=== PATIENT | male | born 1985 ===

== ENCOUNTER 2023-07-02 05:03 | Day surgery (SDC) | payer OTHER ==
[~2023-07-02 05:03] MED LIST: HUMIRA(CF)40 MG/0.4 SQ
[2023-07-02] MEDS ORDERED: METRONIDAZOLE/SODIUM CHLORIDE 500 MG/100 ML PIGGYBACK IV ONE ×2 (07:17→08:30)
[2023-07-02] MEDS ORDERED: CEFTRIAXONE SODIUM 2,000 MG VIAL ONE (07:17)
[2023-07-02] MEDS ORDERED: LIDOCAINE HCL 1%/Epi 20ML VIAL IJ ONE ×2 (07:34→08:30)
[2023-07-02] MEDS ORDERED: POVIDONE-IODINE 118 ML BOTT TOP ONE ×2 (07:34→08:30)
[2023-07-02] MEDS ORDERED: HEMOSTATIC MATRIX 1 KIT KIT TOP ONE ×2 (07:34→08:30)
[2023-07-02] MEDS ORDERED: DIBUCAINE 15 GM OINT..GM. TUBE ONE (07:34)
[2023-07-02] MEDS ORDERED: BUPIVACAINE HCL/PF 0.5% 30ML ML ONE (07:34)
[2023-07-02] MEDS ORDERED: HYDROCORTISONE SODIUM SUCC/PF 100 MG VIAL ONE (07:35)
[2023-07-02] MEDS ORDERED: CEFTRIAXONE SODIUM 2,000 MG VIAL IV ONE (08:30)
[2023-07-02] MEDS ORDERED: HYDROCORTISONE SODIUM SUCC/PF 100 MG VIAL IV ONE (08:30)
[2023-07-02] MEDS ORDERED: BUPIVACAINE HCL 30 ML VIAL IJ ONE (08:30)
[2023-07-02] MEDS ORDERED: DIBUCAINE 30 GM TUBE RECTAL ONE (08:45)
[2023-07-02] MEDS ORDERED: RECTICARE30 GM TOP (08:48)
[2023-07-02] MEDS ORDERED: PERCOCET 5-3251 EACH PO (08:48)
[2023-07-02] MEDS ORDERED: METRONIDAZOLE500 MG PO (08:49)
== END 2023-07-02 15:15 | disposition home or self-care (01) ==
LOC: CIR.AMB 05:03
PROVIDERS: ATTEND Surgery
DX: K60.3 Anal fistula (principal); Z20.822 Contact with and (suspected) exposure to COVID-19